=== PATIENT | male | born 1990 | race Caucasian/White ===

== ENCOUNTER → 2022-10-19 13:25 | Outpatient (BNVA) | payer MEDICAID, SELFPAY | PROVIDERS: Visit Provider Psychiatry & Neurology Psychiatry | DX: F84.0 Autistic disorder (principal) | CPT/HCPCS: 80053; 80164; 83036; 85025 ==

== ENCOUNTER → 2023-10-24 11:34 | Outpatient (BNVA) | payer OTHER, SELFPAY | PROVIDERS: Visit Provider Psychiatry & Neurology Psychiatry | DX: Z79.899 Other long term (current) drug therapy (principal); F84.0 Autistic disorder | CPT/HCPCS: 80053; 80061; 80164; 83036; 85025 ==

== ENCOUNTER → 2024-11-26 14:26 | Outpatient (BNVA) | payer SELFPAY | PROVIDERS: Visit Provider Psychiatry & Neurology Psychiatry | DX: F84.0 Autistic disorder (principal); Z79.899 Other long term (current) drug therapy | CPT/HCPCS: 80053; 80061; 83036; 83721 ==

== ENCOUNTER 2024-12-16 11:52 | Outpatient (CLI) | payer MEDICAID, SELFPAY | END 2024-12-16 11:53 | disposition home or self-care (01) | LOC: SLEEP 11:53 | PROVIDERS: PCP Family Medicine; Visit Provider Internal Medicine Pulmonary Disease | DX: G47.33 Obstructive sleep apnea (adult) (pediatric) (principal); G47.36 Sleep related hypoventilation in conditions classified elsewhere | CPT/HCPCS: G0399 ==